=== PATIENT | male | born 1975 ===

== ENCOUNTER 2021-07-07 17:49 | Inpatient (IN) | payer BC ==
[~2021-07-07] VITALS: Ht 180.3 cm; Wt 134.5 kg
--- NOTE | 2021-07-07 22:27 | NUR ---
Arrived via EMS, shortness of breath noted with exertion, O2@4L per NC, independent with care, able to answer all questions appropriately.
[2021-07-07] MEDS ORDERED: WELLBUTRIN XL150 MG PO (22:35)
[2021-07-07] MEDS ORDERED: COZAAR 50MG50 MG/TAB PO (22:35)
[2021-07-07] MEDS ORDERED: COMPLETE MULTI1 TAB PO (22:36)
[2021-07-08 01:07] VITALS: BP 166/82; PULSE 82; TEMP 98.1
--- NOTE | 2021-07-08 03:22 | NUR ---
Call placed to Rina Squires re: critical DDimer result, See new orders.
[2021-07-08 05:35] VITALS: BP 177/98; PULSE 85; TEMP 98.2
[2021-07-08 07:58] VITALS: BP 169/87; PULSE 90; TEMP 98.4
[2021-07-08 07:59] LABS: HEMATOCRIT 42.8 % (42.0-52.0); HEMOGLOBIN 14.8 g/dl (13.5-18.0); MEAN CELL VOLUME 90 fl (80.0-100.0); MEAN CORPUSCULAR HEMOGLOBIN 31 pg (27.0-31.0); MEAN CORPUSCULAR HGB CONC 35 g/dl (33.0-37.0); MEAN PLATELET VOLUME 10.5 fl (7.4-10.4); PLATELET COUNT 317 K/mm3 (130-400); RED BLOOD COUNT 4.75 M/mm3 (4.20-5.60); REDCELL DISTRIBUTION WIDTH-CV 12.1 % (11.5-14.5)
[2021-07-08 08:08] LABS: CALCIUM 8.9 mg/dL (8.4-10.2); CREATININE, serum 0.77 mg/dL (0.72-1.25); POTASSIUM 3.9 mmol/L (3.5-4.5)
[2021-07-08 08:32] LABS: LYMPHOCYTE 7 % (20.0-51.0); NEUTROPHILS 81 % (42.0-75.2); PLATELET ESTIMATE NORMAL (NORMAL)
--- NOTE | 2021-07-08 11:47 | NUR ---
Scheduled medication given. Shift assessment preformed. Patient currently requiring 4L of O2 via nasal cannula. Dyspnea upon exertion noted. Patient C/O being "dehydrated". Orders for NS gtt placed by Dr. Schmidt. Patient denies any pain, discomfort, or further needs at this time. Call light in reach. VSS. Patient A&O.
[2021-07-08 12:00] VITALS: BP 146/86; PULSE 84; TEMP 98.5
[2021-07-08 16:00] VITALS: BP 140/87; PULSE 73; TEMP 98
--- NOTE | 2021-07-08 17:50 | NUR ---
Patient has had an ok day. Oxygen titrated down to 2.5 L via nasal cannula. Still experiencing dypnea upon exertion. Fluids running at 75 ml/hr. Patient denies any pain, discomfort, or further needs at this time. Call light in reach.
[2021-07-08 20:00] VITALS: BP 152/90; PULSE 69; TEMP 97.6
[2021-07-09] VITALS (8 sets, daily range): BP systolic 130–159; BP diastolic 72–87; PULSE 61–89; TEMP 97.6–98.7
--- NOTE | 2021-07-09 06:48 | NUR ---
Patient has had a calm night, he had some sputum production, sample collected, Continues at 2L 02. Continues with cough. No other issues. Shift report given to dayshift nurse.
--- NOTE | 2021-07-09 07:00 | NUR ---
PATIENT RESTING IN BED AT THIS TIME. CURRENTLY REQUIRING 2L OF O2 VIA NASAL CANNULA. DENIES ANY PAIN, DISCOMFORT, OR FURTHER NEEDS AT THIS TIME. CALL LIGHT IN REACH.
[2021-07-09 08:07] LABS: HEMATOCRIT 41.6 % (42.0-52.0); HEMOGLOBIN 14.2 g/dl (13.5-18.0); MEAN CELL VOLUME 91 fl (80.0-100.0); MEAN CORPUSCULAR HEMOGLOBIN 31 pg (27.0-31.0); MEAN CORPUSCULAR HGB CONC 34 g/dl (33.0-37.0); MEAN PLATELET VOLUME 10.7 fl (7.4-10.4); PLATELET COUNT 368 K/mm3 (130-400); RED BLOOD COUNT 4.58 M/mm3 (4.20-5.60); REDCELL DISTRIBUTION WIDTH-CV 12.2 % (11.5-14.5)
[2021-07-09 08:28] LABS: CALCIUM 8.7 mg/dL (8.4-10.2); CREATININE, serum 0.76 mg/dL (0.72-1.25); POTASSIUM 3.6 mmol/L (3.5-4.5)
[2021-07-09 09:37] LABS: EOSINOPHIL 1 % (0-4); LYMPHOCYTE 8 % (20.0-51.0); NEUTROPHILS 83 % (42.0-75.2)
[2021-07-09 10:36] LABS: ALBUMIN 2.7 gm/dL (3.5-5.0); BILIRUBIN,DIRECT 0.2 mg/dL (0.0-0.5); BILIRUBIN,TOTAL 0.5 mg/dL (0.2-1.2); TOTAL PROTEIN 6.6 gm/dL (6.2-8.1)
--- NOTE | 2021-07-09 11:42 | NUR ---
Plan is to return home to [facility] spoke with patient via phone for assessment. Patient reports that he reside in his own home and is independent. Patient denies having anyone at home to help him but reports that he will be okay. Patient indicated that his EMR contact is Marla Mcclure . Patient reports that his pcp is Dr. Juan Alberto Weber. Patient indicated that he obtians his medications in [place] and drives himself. Patient indicated that he will have a ride home. Patient denies having a DPOA. Patient denies having any care cocnerns at this time. WIll follow.
--- NOTE | 2021-07-09 18:53 | NUR ---
Patient has had a good day. Currently not requiring any O2. IV fluids DC'd. Patient denies any pain, discomfort, or further needs at this time. Call light in reach. VSS. Patient A&O.
--- NOTE | 2021-07-09 21:00 | NUR ---
Patient is sitting in chair, alert and oriented x 4, VSS, RA sats over 90%, reports no pain, nausea, or vomiting. Some SOB while walking but improvement from yesterday. Assessment completed, no further needs at this time, call light within reach.
[2021-07-10 03:23] VITALS: BP 143/92; PULSE 88; TEMP 97.8
--- NOTE | 2021-07-10 07:00 | NUR ---
Patient has been stable all night. All needs met. Continues with cough. Shift report given to day shift nurse.
--- NOTE | 2021-07-10 07:28 | NUR ---
Patient resting in bed at this time. On RA. Denies any pain, discomfort, or further needs at this time. Call light in reach.
[2021-07-10 09:08] LABS: BASO % 0.3 % (0.0-2.0); EOS % 0.3 % (0-4.0); GRAN # 7.3 K/mm3 (1.4-6.5); GRAN % 73.8 % (42.2-75.2); HEMATOCRIT 41.4 % (42.0-52.0); HEMOGLOBIN 14.4 g/dl (13.5-18.0); LYMPH # 1.3 K/mm3 (1.2-3.4); LYMPH % 13.6 % (20.0-51.0); MEAN CELL VOLUME 90 fl (80.0-100.0); MEAN CORPUSCULAR HEMOGLOBIN 31 pg (27.0-31.0); MEAN CORPUSCULAR HGB CONC 35 g/dl (33.0-37.0); MONO # 1.1 K/mm3 (0.1-0.6); MONO % 10.8 % (1.7-9.3); PLATELET COUNT 345 K/mm3 (130-400); RED BLOOD COUNT 4.62 M/mm3 (4.20-5.60); REDCELL DISTRIBUTION WIDTH-CV 12.3 % (11.5-14.5)
[2021-07-10 09:25] LABS: CALCIUM 8.5 mg/dL (8.4-10.2); CREATININE, serum 0.75 mg/dL (0.72-1.25); POTASSIUM 3.6 mmol/L (3.5-4.5)
[2021-07-10 09:28] VITALS: BP 158/85; PULSE 80; TEMP 98.2
[2021-07-10 12:00] VITALS: BP 169/88; PULSE 81; TEMP 98.1
[2021-07-10] MEDS ORDERED: DECADRON6 MG PO (13:08)
[2021-07-10] MEDS ORDERED: PROAIR HFA0.09 MG/AC IH (13:09)
--- NOTE | 2021-07-10 17:57 | NUR ---
Scheduled medications given. Shift assessment preformed. Patient is currently on RA. Does have an ocassional cough that is relieved by cough medicine. Patient deemed fit for discharge. IV DC'd, catheter intact, no signs of phlebitis. Discharge education/instructions given. All questions answered. Patient denies any pain, discomfort, or further needs at this time. VSS. Patient A&O. Patient escorted from building by [address] [facility] [employer] via wheelchair. Girlfriend transporting home.
== END 2021-07-10 18:01 | disposition home or self-care (01) | DRG 177 ==
LOC: MEDICAL 17:49
PROVIDERS: Student in an Organized Health Care Education/Training Program; ADMIT Student in an Organized Health Care Education/Training Program
PROC: XW033E5 Introduction of Remdesivir Anti-infective into Peripheral Vein, Percutaneous Approach, New Technology Group 5 (ICD-10-PCS; principal; 2021-07-07)
DX: U07.1 COVID-19 (principal); J96.01 Acute respiratory failure with hypoxia; J12.82 Pneumonia due to coronavirus disease 2019; I10 Essential (primary) hypertension; F41.9 Anxiety disorder, unspecified; F32.A Depression, unspecified; Z86.718 Personal history of other venous thrombosis and embolism; Z87.891 Personal history of nicotine dependence; Z73.0 Burn-out
CPT/HCPCS: 99223-AI; 99232-AI; 99233-AI; 99239; J0696; J1100; J1650; J7030; J7050